=== PATIENT | male | born 1945 | race Caucasian/White ===

== ENCOUNTER 2022-02-01 13:37 | Day surgery (SDC) | payer MEDICARE, BC ==
[~2022-02-01 13:37] MED LIST: Cefuroxime 10 MG/ML SYRINGE EYERT SCH; Lidocaine 1% PF 2 ML SDV INJECT SCH; Pilocarpine 4% Ophth Soln 15 ML Bot EYERT SCH; Tetracaine HCl/PF 0.5% 4 ML Bottle EYEBOTH SCH
[2022-02-01] MEDS: Polymyxin B/Trimethoprim 10 ML Bottle EYERT SCH ×2 (14:30→15:12)
[2022-02-01] MEDS: Brimonidine 0.2% Ophth Soln 5 ML Bottle EYERT SCH ×2 (14:36→15:15)
[2022-02-01] MEDS: Phenylephrine 2.5% Ophth Soln 2 ML Bot EYERT SCH ×4 (14:41→15:20)
[2022-02-01] MEDS: Tropicamide 1% Ophth Soln 15 ML Bottle EYERT SCH ×4 (14:45→15:24)
== END 2022-02-01 17:03 | disposition home or self-care (01) ==
LOC: JD.SDS 13:37
PROVIDERS: ATTEND Ophthalmology
DX: H25.813 Combined forms of age-related cataract, bilateral (principal); H35.3131 Nonexudative age-related macular degeneration, bilateral, early dry stage; H35.363 Drusen (degenerative) of macula, bilateral; H35.373 Puckering of macula, bilateral; H34.232 Retinal artery branch occlusion, left eye; H57.813 Brow ptosis, bilateral; H02.834 Dermatochalasis of left upper eyelid; H02.831 Dermatochalasis of right upper eyelid; E78.00 Pure hypercholesterolemia, unspecified; I10 Essential (primary) hypertension; Z98.890 Other specified postprocedural states; Z90.49 Acquired absence of other specified parts of digestive tract; Z87.891 Personal history of nicotine dependence; Z79.899 Other long term (current) drug therapy

== ENCOUNTER 2022-03-01 09:17 | Day surgery (SDC) | payer MEDICARE, BC ==
[2022-03-01] MEDS: Polymyxin B/Trimethoprim 10 ML Bottle EYELF SCH ×3 (09:09→10:50)
[2022-03-01] MEDS: Brimonidine 0.2% Ophth Soln 5 ML Bottle EYELF SCH ×3 (09:16→10:50)
[~2022-03-01 09:17] MED LIST changes: +Cefuroxime 10 MG/ML SYRINGE EYELF SCH; -Cefuroxime 10 MG/ML SYRINGE EYERT SCH; +Pilocarpine 4% Ophth Soln 15 ML Bot EYELF SCH; -Pilocarpine 4% Ophth Soln 15 ML Bot EYERT SCH; -Tetracaine HCl/PF 0.5% 4 ML Bottle EYEBOTH SCH
[2022-03-01] MEDS: Phenylephrine 2.5% Ophth Soln 2 ML Bot EYELF SCH ×5 (09:21→10:31)
[2022-03-01] MEDS: Tropicamide 1% Ophth Soln 15 ML Bottle EYELF SCH ×4 (09:25→10:00)
[2022-03-01] MEDS: Tetracaine HCl/PF 0.5% 4 ML Bottle EYEBOTH SCH ×4 (10:15→10:38)
== END 2022-03-01 11:03 | disposition home or self-care (01) ==
LOC: JD.SDS 09:17
PROVIDERS: ATTEND Ophthalmology
DX: H25.812 Combined forms of age-related cataract, left eye (principal); H16.103 Unspecified superficial keratitis, bilateral; H35.373 Puckering of macula, bilateral; H35.3131 Nonexudative age-related macular degeneration, bilateral, early dry stage; H35.363 Drusen (degenerative) of macula, bilateral; H34.232 Retinal artery branch occlusion, left eye; H57.813 Brow ptosis, bilateral; H52.31 Anisometropia; I11.0 Hypertensive heart disease with heart failure; I50.9 Heart failure, unspecified; E78.00 Pure hypercholesterolemia, unspecified; Z96.1 Presence of intraocular lens; Z98.890 Other specified postprocedural states; Z90.49 Acquired absence of other specified parts of digestive tract; Z96.649 Presence of unspecified artificial hip joint; Z79.899 Other long term (current) drug therapy; Z79.52 Long term (current) use of systemic steroids; Z88.8 Allergy status to other drugs, medicaments and biological substances
CPT/HCPCS: 66984; J0697